=== PATIENT | male | born 1970 | race African-American/Black ===

== ENCOUNTER 2016-05-21 17:01 | Emergency (ER) | payer SELFPAY ==
[2016-05-21 17:06] VITALS: TEMP 97.7
[2016-05-21] MEDS ORDERED: chlordiazePOXIDE 25 MG CAP PO ONE (17:47)
[2016-05-21] MEDS ORDERED: CHLORDIAZEPOXIDE 25MG PREPK#6 BTL TAKEHOME ONE (17:48)
--- NOTE | 2016-05-21 17:52 | EDPHY ---
H & P Smoking Status: Current every day smoker Time Seen by Provider: 05/21/16 17:48 HPI/ROS: HPI: 46-year-old male presents to emergency department with chief concern alcohol withdrawal and requesting alcohol withdrawal assistance. Last drink 2 hours ago. Drank 1 pt of vodka today. Drinks daily for years. Denies fever, chills, dizziness, visual changes, visual or auditory hallucinations, significant tremors, shortness of breath, chest pain, abdominal pain, vomiting, diarrhea. Reports mild nausea. No history of alcohol withdrawal seizures. No recent trauma. ROS:10 point review of systems is negative other than as stated in HPI (Angy Christine) Social History: Transient (Angy Christine) Physical Exam: Vital signs stable, reviewed by me General: Awake, alert, calm, cooperative. No acute distress. Head: Normalocephalic. Atraumatic. EENT: PERRLA. EOMI. No pallor or injection. Anicteric. No nystagmus. No injection. TMs intact bilaterally with normal landmarks. No rhinnorhea, nasal passages clear. Oropharynx without redness, exudates, or lesions. Tonsils 2+ bilaterally, no exudates. Neck: Supple, nontender. No lymphadenopathy. Full range of motion. No meningismus. Respiratory: Breathing unlabored. Breath sounds equal bilaterally and clear to auscultation. No adventitious sounds. CV: Chest nontender, atraumatic. Heart rate regular. No murmur, distal pulses 2+ bilaterally. Brisk cap refill all extremities. GI: Abdomen soft, nontender. Bowel sounds normoactive and positive x4 quadrants. Neuro: Alert. Oriented x 3. Speech clear. Nonfocal cranial nerves throughout. Sensation intact all extremities. Atremulous. No tongue fasciculations. Skin: Skin warm, dry, intact. No rashes, abrasions, or lacerations. Skin turgor normal. Extremities: Full range of motion in all 4 extremities. Strength 5+ all extremities. (Angy Christine) Constitutional: Initial Vital Signs Temperature (C) 36.5 C 05/21/16 17:03 Heart Rate 98 05/21/16 17:03 Respiratory Rate 16 05/21/16 17:03 Blood Pressure 141/96 H 05/21/16 17:03 O2 Sat (%) 95 05/21/16 17:03 O2 Delivery Mode Room Air Allergies/Adverse Reactions: No Known Allergies Allergy (Unverified 05/21/16 17:05) Medical Decision Making ED Course/Re-evaluation: 38-year-old gentleman presents to emergency department requesting help with alcohol withdrawal. Presently his CIWA score is a 4. He is ambulating without difficulty. There are no signs of trauma. He is given a 25 mg Librium here in the ED and transportation provided to [facility] with Librium take-home pack. (Angy Christine) The patient was evaluated and managed by the [facility] director. My cosignature indicates that I reviewed the chart and I agree with the findings and plan of care as documented. I am the secondary supervising physician. (Gabriela Azul) - Data Points Medications Given: Discontinued Medications Chlordiazepoxide (Librium 25 Mg Prepack#6) 1 btl TAKEHOME EDNOW ONE Stop: 05/21/16 17:49 Last Admin: 05/21/16 17:57 Dose: 1 btl Chlordiazepoxide HCl (Librium) 25 mg PO EDNOW ONE Stop: 05/21/16 17:48 Last Admin: 05/21/16 17:58 Dose: 25 mg Departure - Departure Disposition: Home, Routine, Self-Care Clinical Impression: Alcohol withdrawal Condition: Good Instructions: Alcohol Withdrawal (ED) Additional Instructions: Plan: [facility], they will help use through the alcohol withdrawal process Follow [facility] Referrals: OUT OF STATE,. [Primary Care Provider] - As per Instructions [facility] [Outside] - As per Instructions
[2016-05-21 18:10] VITALS: BP 140/98; PULSE 85; RESP 18; O2SAT 93
== END 2016-05-21 18:25 | disposition home or self-care (01) ==
DX: F10.239 Alcohol dependence with withdrawal, unspecified (principal); F17.200 Nicotine dependence, unspecified, uncomplicated